=== PATIENT | female | born 2000 | race Caucasian/White ===

== ENCOUNTER 2025-10-30 03:57 | Emergency (ER) | payer OTHER ==
[~2025-10-30] VITALS: Ht 162.6 cm; Wt 77.1 kg
[2025-10-30] MEDS ORDERED: Ketorolac Tromethamine 30mg Vial IM ONE (04:15)
[2025-10-30] MEDS ORDERED: Prochlorperazine Edisylate 10 mg Vial IM ONE (04:15)
== END 2025-10-30 06:00 | disposition home or self-care (01) ==
LOC: ER 03:57
DX: S09.90XA Unspecified injury of head, initial encounter (principal); W19.XXXA Unspecified fall, initial encounter
CPT/HCPCS: 70450; 96374; 99283-25; J0780; J1885